=== PATIENT | female | born 1955 | race Caucasian/White ===

== ENCOUNTER 2023-07-20 11:40 | Outpatient (CLI) | payer MEDICARE, SELFPAY | END 2023-07-20 11:41 | disposition home or self-care (01) | LOC: NFLDREF 07-21 06:50 | PROVIDERS: Visit Provider Physician Assistant | DX: E78.5 Hyperlipidemia, unspecified (principal); Z13.1 Encounter for screening for diabetes mellitus | CPT/HCPCS: 80061; 82947 ==

== ENCOUNTER 2023-08-25 06:03 | Day surgery (SDC) | payer MEDICARE, SELFPAY ==
[2023-08-25] VITALS (11 sets, daily range): BP systolic 179–199; BP diastolic 81–102; PULSE 64–82; RESP 12–18; TEMP 36.9–37.1; O2SAT 96–100; BMI 27.1
[2023-08-25] MEDS: ETHYL CHLORIDE 1 APPLICATION 1 APPLIC TOPICAL (07:00)
[2023-08-25] MEDS: BUPIVACAINE 0.5% 30 ML INJECTION (07:00)
--- NOTE | 2023-08-25 07:38 | PM.ORPRC ---
Procedure Note Date of procedure: 08/25/23 Procedure: PREOPERATIVE DIAGNOSIS: 1. Right it is long finger flexor tenosynovitis - trigger finger 2. Right volar hand benign cyst near long finger A1 chico region POSTOPERATIVE DIAGNOSIS: 1. Right long finger flexor tenosynovitis - trigger finger 2. Right volar hand benign cyst near long finger A1 chico region PROCEDURE: 1. Right long finger flexor tendon sheath open release (A1 chcio) 2. Right volar hand benign cyst open excision SURGEON: Josef Rocha MD. FLORAL ARRANGER: [ALEX Rasheed] ANESTHESIA: Local anesthetic 6 6 mL via 50:50 mixture of [1]% Lidocaine [with epi] and [0.5]% marcaine [plain] EBL: [ 2mL] IMPLANTS: None TOURNIQUET: [None] COMPLICATIONS: None evident INDICATIONS: The patient is a pleasant 68-year-old female who has experienced right long finger catching/triggering for number of months. It has progressively gotten worse. In addition, there has been a growth developing over the volar aspect of the right palm near the A1 chico of the long finger. This is caused pain and some dysfunction with gripping objects that are firm. Given the failure of nonoperative management, and how this affects daily life, surgery was recommended. DESCRIPTION OF PROCEDURE: Following a thorough discussion of risks, benefits, and alternatives consent was obtained and the operative digit(s) was marked. The patient was brought to the operating room and placed supine on the operating table. Local anesthesia induction was undertaken in preop holding. No antibiotics were administered as this was planned to be a local case only. Proper time-out was performed identifying proper patient, site, and procedure. The operative extremity was prepped and draped in the appropriate sterile fashion using ChloraPrep. A incision was made on the palmar surface of the hand overlying the MCP joint region of the appropriate digit(s) respecting the palmar creases being cautious not to cross these perpendicularly. Sharp incision through the skin, and blunt dissection through subcutaneous tissue allowing protection of crossing neurologic structures. The A1 chico was visualized directly. It was incised sharply with a 15 blade. It was released completely from its distal to proximal extent under direct visualization. The tendon was inspected and found to be [mildly striated consistent with some friction]. Otherwise, it was intact. The tendon was removed out of the wound, and further inspected. The patient was asked to manually flex and extend the digits and showed no further catching. The catching, which was visualized initially, was no longer evident with reproduction of a manual fist and relaxation. Thereafter, the tissues just ulnar to the A1 chico were dissected with the tenotomy scissors. The cyst was quickly encountered. The ulnar digital nerve was also visualized and protected. The cyst indeed enlarged as it went deep adjacent to the flexor tendon sheath to the long finger. The stalk/base seem to be going to the flexor tendon slightly on the ulnar aspect we were able to circumferentially dissect the cyst and cauterized it at its base. Closure was performed with 4-O nylon in interrupted fashion. Soft dressings were applied, and the patient was transferred to the recovery room in stable condition. PLAN: 1. Encourage elevation of the operative extremity. 2. Range of motion of the fingers and hand/wrist as tolerated. 3. Ibuprofen/acetaminophen and/or oxycodone as needed for pain control. 4. Follow up with PA visit in 12-16 days for wound check and suture removal. 5 5. In addition, due to severe acute cervical neck pain that she has been struggling with for the last 3 days, I will give her Medrol Dosepak. This has been E prescribed.
[2023-08-25] MEDS: NEOMYCIN/BACITRACIN/POLYMYXIN B 1 APPLIC TOPICAL (07:44)
[2023-08-25] MEDS: OxyCODONE/APAP 5-325 TABLET PO (07:55)
== END 2023-08-25 08:12 | disposition home or self-care (01) ==
PROVIDERS: Visit Provider Orthopaedic Surgery Sports Medicine
PROC: (CPT 26055; principal; 2023-08-25 07:15)
DX: M65.331 Trigger finger, right middle finger (principal); M67.441 Ganglion, right hand; M65.841 Other synovitis and tenosynovitis, right hand
CPT/HCPCS: 26055; 26160; 88304; A9270; J0665

== ENCOUNTER 2023-09-16 10:01 | Outpatient (CLI) | payer MEDICARE, SELFPAY ==
--- NOTE | 2023-09-16 10:15 | CRLHL7_ITS ---
For Patients: As a result of the Century Cures Act, medical imaging exams and procedure reports are released immediately into your electronic medical record. You may view this report before your referring provider. If you have questions, please contact your health care provider. INDICATION: Neck pain. COMPARISON: None. TECHNIQUE: Sagittal T1, T2, and STIR sequences. Axial T2/gradient sequences. FINDINGS: Straightening of the normal cervical lordosis which may be secondary to muscle spasm or patient positioning. Otherwise, normal vertebral body facet alignment. No fractures. No vertebral body loss of height. No spondylolisthesis. No ligamentous injury. No suspicious osseous lesions.Vertebral body hemangioma C5. Normal cord signal. No intradural mass or lesion. Marrow edema of the articular processes of the left C4-5 facet joint which may represent stress reaction or inflammation from facet arthritis. C1-2: No spinal canal narrowing. C2-3: No spinal canal or neural foraminal narrowing. C3-4: Disk degeneration posterior disc bulge or disc osteophyte complex. No narrowing of spinal canal. Mild narrowing of the left neural foramen. No narrowing of the right neural foramen. C4-5: Disc degeneration posterior disc bulging disc osteophyte complex. Effacement of the ventral thecal sac and mild narrowing of spinal canal. Mild narrowing of the left neural foramen. No narrowing of the right neural foramen. C5-6: Disc degeneration and posterior disc bulging disc osteophyte complex. Effacement of the ventral thecal sac. No narrowing of the spinal canal. No neural foraminal narrowing. C6-7: Disc degeneration posterior disc bulging disc osteophyte complex. No narrowing of spinal canal. Mild narrowing of the left neural foramen. No narrowing of the right neural foramen. C7-T1: No spinal canal or neural foraminal narrowing. IMPRESSION: 1. Straightening of the normal cervical lordosis. Otherwise, normal alignment. No fractures. 2. Normal cord signal. 3. Marrow edema of the articular processes of the left C4-5 facet joint which may represent stress reaction or inflammation. 4. At C3-4, mild narrowing of the left neural foramina 5. At C4-5, mild narrowing of spinal canal and left neural foramina 6. At C6-7, mild narrowing of the left neural foramina Dictated by Subhash Marsh MD @ 09/16/2023 3:31:40 PM (Electronically Signed)
== END 2023-09-16 10:02 | disposition home or self-care (01) ==
LOC: MRI 10:02
PROVIDERS: Visit Provider Physician Assistant Surgical
DX: M54.2 Cervicalgia (principal); M50.21 Other cervical disc displacement, high cervical region; M50.221 Other cervical disc displacement at C4-C5 level; M50.223 Other cervical disc displacement at C6-C7 level; M54.12 Radiculopathy, cervical region
CPT/HCPCS: 72141

== ENCOUNTER 2023-10-21 13:40 | Outpatient (CLI) | payer MEDICARE, SELFPAY ==
--- NOTE | 2023-10-21 14:00 | MM_ITS ---
Patient: NORMA COMER Facility:?[facility] Patient ID:?[id number] Site Patient ID:?[id number]. Site :?[id number] Study:?XRay-Breast Bilateral 3D W/CAD-10/21/2023 2:53:26 PM Ordering Physician:Kristen November Final Report: BILATERAL SCREENING MAMMOGRAM WITH COMPUTER-AIDED DETECTION AND TOMOSYNTHESIS TECHNIQUE: CC and MLO views were obtained. These mammographic images have been obtained using full-field digital technique. These mammographic images were interpreted with the benefit of computer-aided detection. Breast Tomosynthesis was used in this interpretation. COMPARISON FILM: 10/18/20, 01/14/18, 01/07/17. FINDINGS: There are scattered areas of fibroglandular density IMPRESSION: There is no radiographic evidence for malignancy. ASSESSMENT: BI-RADS Category 1: Negative RECOMMENDATION: Routine screening mammogram in 1 year. A lay language report of this examination will be provided to the patient. Anders Booker M.D. Diagnostic Radiologist [email or web address] KIAH/[email or web address] / be/Dictated by: Anders Booker MD @ 10/22/2023 8:51:00 AM Signed by:?Anders Booker MD @10/23/2023 10:15:00 AM (Electronic Signature)
== END 2023-10-21 13:41 | disposition home or self-care (01) ==
LOC: MAMMO 13:41
PROVIDERS: Visit Provider Physician Assistant
DX: Z12.31 Encounter for screening mammogram for malignant neoplasm of breast (principal)
CPT/HCPCS: 77063; 77067